=== PATIENT | female | born 1995 | race Caucasian/White ===

== ENCOUNTER 2017-03-19 22:09 | Emergency (ER) | payer SELFPAY ==
[2017-03-19 22:15] VITALS: BP 129/72; PULSE 111; TEMP 98.7; BMI 27.0
--- NOTE | 2017-03-19 23:00 | PDOC ---
History of Present Illness - General Chief Complaint: Abscess Boil Stated Complaint: BUMP ON LT THIGH Time Seen by Provider: 03/19/17 22:34 History Source: Patient Exam Limitations: No Limitations - History of Present Illness Initial Comments: 03/19/17 23:01 21-year-old female with no medical history presents to the emergency department complaining of an abscess to the medial left mid thigh. Patient states she noticed it yesterday which was red and tender on palpation. Patient denies any fever, chills, nausea/vomiting, extremity numbness or tingling sensation, chest pain, shortness of breath. Patient was informed that abscess is too early for an I&D. She needs to continue warm compresses and return back to the emergency department for worsening symptoms. Timing/Duration: reports: yesterday Past History - Past Medical History Allergies/Adverse Reactions: Allergies Allergy/AdvReac Type Severity Reaction Status Date / Time No Known Allergies Allergy Verified 03/19/17 22:13 Home Medications: Ambulatory Orders Cephalexin Monohydrate [Keflex -] 500 mg PO Q8H #21 capsule 03/19/17 Sulfamethoxazole/Trimethoprim [Bactrim Ds -] 1 tab PO BID #14 tablet 03/19/17 COPD: No - Suicide/Smoking/Psychosocial Hx Smoking History: Never smoked Review of Systems - Review of Systems Able to Perform ROS?: Yes Comments:: 03/19/17 23:01 CONSTITUTIONAL: Absent: fever, chills, diaphoresis, generalized weakness, malaise, loss of appetite HEENT: Absent: rhinorrhea, nasal congestion, throat pain, throat swelling, difficulty swallowing, mouth swelling, ear pain, eye pain, visual Changes CARDIOVASCULAR: Absent: chest pain, loss of consciousness, palpitations, irregular heart rate, peripheral edema RESPIRATORY: Absent: cough, shortness of breath, dyspnea with exertion, orthopnea, wheezing, stridor, hemoptysis GASTROINTESTINAL: Absent: abdominal pain, abdominal distension, nausea, vomiting, diarrhea, constipation, melena, hematochezia GENITOURINARY: Absent: dysuria, frequency, urgency, hesitancy, hematuria, flank pain, genital pain MUSCULOSKELETAL: Absent: myalgia, arthralgia, joint swelling SKIN: Absent: rash, itching, pallor HEMATOLOGIC/IMMUNOLOGIC: Absent: easy bleeding, easy bruising, lymphadenopathy, frequent infections ENDOCRINE: Absent: unexplained weight gain, unexplained weight loss, heat intolerance, cold intolerance NEUROLOGIC: Absent: headache, focal weakness or paresthesias, dizziness, unsteady gait, seizure, mental status changes, bladder or bowel incontinence PSYCHIATRIC: Absent: anxiety, depression, suicidal or homicidal ideation, hallucinations. Is the patient limited Maltese proficient: No *Physical Exam - Vital Signs Last Vital Signs Temp Pulse Resp BP Pulse Ox 98.7 F 111 H 18 129/72 100 03/19/17 22:13 03/19/17 22:13 03/19/17 22:13 03/19/17 22:13 03/19/17 22:13 - Physical Exam Comments: 03/19/17 23:01 GENERAL: Well developed, well nourished. Awake and alert. No acute distress. HEENT: Normocephalic, atraumatic. PERRLA, EOMI. No conjunctival pallor. Sclera are non- icteric. Moist mucous membranes. Oropharynx is clear. NECK: Supple. Full ROM. No JVD. Carotid pulses 2+ and symmetric, without bruits. No thyromegaly. No lymphadenopathy. CARDIOVASCULAR: Regular rate and rhythm. No murmurs, rubs, or gallops. Distal pulses are 2+ and symmetric. PULMONARY: No evidence of respiratory distress. Lungs clear to auscultation bilaterally. No wheezing, rales or rhonchi. ABDOMINAL: Soft. Non-tender. Non-distended. No rebound or guarding. No organomegaly. Normoactive bowel sounds. MUSCULOSKELETAL Normal range of motion at all joints. No bony deformities or tenderness. No CVA tenderness. EXTREMITIES: No cyanosis. No clubbing. No edema. No calf tenderness. SKIN: Warm and dry. Normal capillary refill. No rashes. No jaundice. NEUROLOGICAL: Alert, awake, appropriate. Cranial nerves 2-12 intact. No deficits to light touch and temperature in face, upper extremities and lower extremities. No motor deficits in the in face, upper extremities and lower extremities. Normoreflexic in the upper and lower extremities. Normal speech. Toes are down- going bilaterally. Gait is normal without ataxia. PSYCHIATRIC: Cooperative. Good eye contact. Appropriate mood and affect. *DC/Admit/Observation/Transfer Diagnosis at time of Disposition: Abscess of left thigh - Discharge Dispostion Disposition: HOME Condition at time of disposition: Stable Admit: No - Referrals Referrals: Rachel Cedeno MD [Staff Physician] - - Patient Instructions Printed Discharge Instructions: DI for Skin Abscess Additional Instructions: Warm compress Keflex as directed unitl complete Tylenol as needed for pain Follow up with your physician and the Infectious disease physician listed on your discharge. Return to the ER for severe/persistent/worsening symptoms, fever, red line from area - Post Discharge Activity
[2017-03-19] MEDS ORDERED: CEPHALEXIN MONOHYDRATE 500 MG CAPSULE (UD) PO ONE (23:04)
[2017-03-19] MEDS ORDERED: SULFAMETHOXAZOLE/TRIMETHOPRIM 800MG/160MG D.S. TABLET PO ONE (23:04)
== END 2017-03-19 23:01 | disposition home or self-care (01) ==
LOC: JER 22:09 → JERFT 22:09
DX: L02.416 Cutaneous abscess of left lower limb (principal)
CPT/HCPCS: 99281-25

== ENCOUNTER 2017-05-08 21:08 | Emergency (ER) | payer SELFPAY ==
[2017-05-08 22:49] VITALS: BP 121/63; PULSE 105; TEMP 100; BMI 26.3
[2017-05-09] MEDS ORDERED: IBUPROFEN 400 MG TABLET (FP) PO ONE (01:40)
--- NOTE | 2017-05-09 03:04 | PDOC ---
History of Present Illness - General Chief Complaint: Cold Symptoms Stated Complaint: COLD Time Seen by Provider: 05/09/17 01:35 - History of Present Illness Initial Comments: 05/09/17 03:00 CHIEF COMPLAINT: sore throat, cough, body aches HISTORY OF PRESENT ILLNESS: 21 yo F with no significant PMH presents to fast track with sore throat, cough, and body aches x 2 days. Patient reports taking Mucinex and Nyquil without much relief. Patient reports she did receive the flu shot this year. Patient is in ED with sisters who have similar symptoms. PAST MEDICAL HISTORY: Denies past medical history FAMILY HISTORY: Denies SOCIAL HISTORY: Denies tobacco, alcohol, illicit drug use. SURGICAL HISTORY: Denies ALLERGIES: No known drug allergies REVIEW OF SYSTEMS General/Constitutional: Fever. Denies weakness, weight change. HEENT: Denies change in vision. Denies ear pain or discharge. Denies sore throat. Cardiovascular: Denies chest pain or shortness of breath. Respiratory: Denies cough, wheezing, or hemoptysis. Gastrointestinal: Denies nausea, vomiting, diarrhea. Genitourinary: Denies dysuria, frequency, or change in urination. Musculoskeletal: Body aches. Skin and breasts: Denies rash or easy bruising. Neurologic: Denies headache, vertigo, loss of consciousness, or loss of sensation. PHYSICAL EXAM General Appearance: Well-appearing, appropriately dressed. No apparent distress HEENT: EOMI, PERRLA, normal ENT inspection, normal voice, TMs normal, pharynx normal. No conjunctival pallor. No photophobia, scleral icterus. Respiratory/Chest: Lungs CTAB. Cardiovascular: RRR. S1, S2. Gastrointestinal/Abdominal: Normal bowel sounds. Abdomen soft, non-distended. No tenderness or rebound tenderness. No organomegaly, pulsatile mass, guarding , hernia, hepatomegaly, splenomegaly. Musculoskeletal/Extremities: Normal inspection. FROM of all extremities, normal capillary refill. Pelvis Stable. No CVA tenderness. No tenderness to extremities, pedal edema, swelling, erythema or deformity. Integumentary: Appropriate color, dry, warm. No cyanosis, erythema, jaundice or rash Neurologic: crane hooker II-XII intact. Fully oriented, alert. Appropriate mood/affect. Motor strength 5/5. No appreciable EOM palsy, facial droop or sensory deficit. Past History - Past Medical History Allergies/Adverse Reactions: Allergies Allergy/AdvReac Type Severity Reaction Status Date / Time No Known Allergies Allergy Verified 03/19/17 22:13 Home Medications: Ambulatory Orders Cephalexin Monohydrate [Keflex -] 500 mg PO Q8H #21 capsule 03/19/17 Sulfamethoxazole/Trimethoprim [Bactrim Ds -] 1 tab PO BID #14 tablet 03/19/17 Benzonatate [Tessalon Pearls -] 100 mg PO TID PRN #21 capsule 05/09/17 Ibuprofen [Motrin -] 400 mg PO QID #28 tablet 05/09/17 COPD: No - Suicide/Smoking/Psychosocial Hx Smoking History: Never smoked Have you smoked in the past 12 months: No Information on smoking cessation initiated: No Hx Alcohol Use: No Drug/Substance Use Hx: No *Physical Exam - Vital Signs Last Vital Signs Temp Pulse Resp BP Pulse Ox 100 F H 105 H 20 121/63 98 05/08/17 22:46 05/08/17 22:46 05/08/17 22:46 05/08/17 22:46 05/08/17 22:46 ED Treatment Course - ADDITIONAL ORDERS Additional order review: 05/09/17 02:03 Influenza Types A,B Antigen (JILLIAN) - Final Nasopharyngeal Swab - Final Medical Decision Making - Medical Decision Making 05/09/17 03:03 21 yo F with no significant PMH presents to fast track with sore throat, cough, and body aches x 2 days. -flu swab flu negative will treat symptomatically. *DC/Admit/Observation/Transfer Diagnosis at time of Disposition: Viral upper respiratory infection - Discharge Dispostion Disposition: HOME Condition at time of disposition: Stable Admit: No - Prescriptions Prescriptions: Benzonatate [Tessalon Pearls -] 100 mg PO TID PRN #21 capsule PRN Reason: Cough Ibuprofen [Motrin -] 400 mg PO QID #28 tablet - Referrals Referrals: Tiarra Thurston MD [Staff Physician] - - Patient Instructions Printed Discharge Instructions: DI for Viral Upper Respiratory Infection -- Adult Additional Instructions: Please take medications as prescribed. Follow up with a primary care doctor for continuing care. If you develop any fever unrelieved by Motrin or Tylenol, neck stiffness, persistent vomiting or diarrhea, or any new or worsening symptoms, please return to the ER. - Post Discharge Activity Forms/Work/School Notes: Back to Work
== END 2017-05-09 03:38 | disposition home or self-care (01) ==
LOC: JERFT 21:08 → JER 21:08
DX: J06.9 Acute upper respiratory infection, unspecified (principal); B97.89 Other viral agents as the cause of diseases classified elsewhere
CPT/HCPCS: 87804; 99281-25